=== PATIENT | female | born 1945 | race Caucasian/White ===

== ENCOUNTER → 2016-12-22 10:14 | Outpatient (CLI) | payer MEDICARE, OTHER ==
[2016-05-01 04:37] VITALS: BMI 29.2
[~2016-12-22 10:14] MED LIST: ALENDRONATE SOD70 MG PO; ATIVAN0.5 MG PO; FUROSEMIDE20 MG PO; GEMFIBROZIL600 MG PO; GLIMEPIRIDE2 MG PO; GLUCOPHAGE500 MG PO; GLUCOTROL 5 MG T5 MG PO; K-TAB10 MEQ PO; NAMENDA10 MG PO; NEURONTIN 300300 MG PO; NORVASC10 MG PO; PERSANTINE75 MG PO; TRIAMCINOLONE A60 M1 TP; ZESTRIL40 MG PO; ZOCOR40 MG PO
[2016-12-22 11:05] LABS: ALBUMIN 3.7 g/dL (3.4-5.0); ANION GAP 15.5 mmol/L (8-16); BILIRUBIN - DIRECT 0.07 mg/dL (0.00-0.30); BILIRUBIN - TOTAL 0.3 mg/dL (0.2-1.3); CALCIUM 8.9 mg/dL (8.5-10.1); CARBON DIOXIDE 20.5 mmol/L (21.0-32.0); PROTEIN - SERUM 7.6 g/dL (6.4-8.2)
== END | disposition home or self-care (01) ==
LOC: D.LAB 10:14 → D.CT 11:30
PROVIDERS: Internal Medicine Gastroenterology
DX: K85.90 Acute pancreatitis without necrosis or infection, unspecified (principal)